=== PATIENT | female | born 1935 | race Caucasian/White ===

== ENCOUNTER 2018-08-24 20:42 | Inpatient (IN) | payer OTHER ==
--- NOTE | 2018-08-24 21:35 | RAD REPORT ---
EXAM DESCRIPTION: CT - Head C Spine Cap Wo Con - 08/24/2018 9:14 pm TECHNIQUE: Computed axial tomography of the head and cervical spine was obtained. Coronal and sagitt al reconstruction was performed Computed axial tomography of the chest, abdomen and pelvis was obtained. Contrast was not requested. All CT scans are performed using dose optimization technique as appropriate and may include automated exposure control or mA/KV adjustment according to patient size. CLINICAL HISTORY: Head and neck injury with chest and abdominal pain status post fall COMPARISON: Head and csp CT 2010 FINDINGS: An intracranial bleed is not seen. An extra-axial fluid collection is not noted The ventricles are normal in caliber. 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 Fluid within the sinuses/mastoids is not seen. A cervical fracture is not seen. No dislocation is noted. Mild anterior subluxation C3 on C4 is uncha nged. Spondylosis involves mid and distal cervical spine The evaluation of mediastinum, yazan, vessels, solid organs and bowel are limited secondary to the lac k of contrast administration. A mediastinal hematoma is not noted. A pleural effusion is not seen. A lung contusion is not present. The liver,spleen, pancreas, adrenals,kidneys and bladder do not demonstrate a traumatic injury Intertrochanteric fracture involves the right femur extending into the greater and lesser trochanters . Avulsion of the trochanters is seen. Marked varus angulation present at the fracture site. IMPRESSION: 1. No acute intracranial abnormality is seen. 2. A cervical fracture is not visualized. 3.Intertrochanteric fracture involves the right femur extending into the greater and lesser trochante rs. Avulsion of the trochanters is seen. Marked varus angulation present at the fracture site 4. No acute traumatic injury involving the chest/abdomen is seen .
--- NOTE | 2018-08-24 21:36 | RAD REPORT ---
EXAM DESCRIPTION: RAD - Pelvis - 08/24/2018 9:30 pm CLINICAL HISTORY: Right hip pain status post fall FINDINGS: Intertrochanteric fracture involves the right femur extending into the greater and lesser trochanters. Avulsion of the trochanters is seen. Marked varus angulation present at the fracture sit e No dislocation seen
--- NOTE | 2018-08-24 21:36 | RAD REPORT ---
EXAM DESCRIPTION: RAD - Hip Right 2 View - 08/24/2018 9:30 pm CLINICAL HISTORY: Right hip pain FINDINGS: Intertrochanteric fracture involves the right femur extending into the greater and lesser trochanters. Avulsion of the trochanters is seen. Marked varus angulation present at the fracture sit e No dislocation seen
--- NOTE | 2018-08-24 22:05 | RAD REPORT ---
EXAM DESCRIPTION: Lucas Single View08/24/2018 9:59 pm CLINICAL HISTORY: Chest pain COMPARISON: none FINDINGS: The lungs appear clear of acute infiltrate. The heart is normal size IMPRESSION: No acute abnormalities displayed
[2018-08-24] MEDS ORDERED: MORPHINE 4 MG/ML SYR ONE (22:16)
[2018-08-24] MEDS ORDERED: ONDANSETRON 4 MG/2 ML VIAL ONE (22:16)
[2018-08-24 22:21] LABS: Absolute Lymphocytes (CBC) 1.6 K/uL (0.7-4.9); Absolute Monocytes 0.9 K/uL (0.1-1.3); Absolute Neutrophil 12.8 K/uL (1.8-8.0); Basophils % 0.4 % (0-1.3); Eosinophils % 0.3 % (0-4.4); Hematocrit 36.3 % (36.0-45.0); Lymphocytes % 10.2 % (15.3-44.8); MCH 31.5 pg (27.0-35.0); MCV 94.8 fL (80-100); MPV 8.9 fL (7.6-11.3); Monocytes % 6.1 % (3.3-12.3); RBC Red Blood Cell Count 3.83 M/uL (3.86-4.86)
[2018-08-24 22:22] LABS: Protime INR 0.99
[2018-08-24 22:40] LABS: ALT/SGPT 13 U/L (12-78); AST/SGOT 17 U/L (15-37); Albumin 3.2 g/dL (3.4-5.0); Alkaline Phosphatase 65 U/L (45-117); BUN Blood Urea Nitrogen 19 mg/dL (7-18); Bicarbonate 29 mmol/L (21-32); Bilirubin Direct 0.1 mg/dL (0-0.2); Bilirubin Total 0.4 mg/dL (0.2-1.0); Glucose Level 138 mg/dL (74-106); NT PRO-BNP 348 pg/mL (<450); Potassium 4.7 mmol/L (3.5-5.1); Sodium Level 144 mmol/L (136-145); Troponin (Emerg Dept Use Only) < 0.02 ng/mL (0.0-0.045)
[2018-08-24] MEDS ORDERED: NA CHLORIDE 0.9% 1,000 ML ONE (22:44)
--- NOTE | 2018-08-24 23:10 | ER ---
Nurse's Notes [facility] Name: Albertina Damon Age: 83 yrs Sex: Female : 1935 Arrival Date: 08/24/2018 Time: 20:42 Bed 15 Private MD: Diagnosis: Displaced intertrochanteric fracture of right femur;Other slipping, tripping and stumbling and falls Presentation: 08/24 20:42 Presenting complaint: EMS states: Staff at [facility] stated that she was walking aj1 around when she suddenly lost her balance and fell, she was unable to stand up due to pain, and they noticed swelling to the right hip so they called EMS. Patient was given 50 mcg of Fentanyl en route. Deformity noted to right hip. Right leg is shortened and internally rotated. Right pedal pulse palpable. half-way staff states that patient did not hit head or lose consciousness during fall. Patient has redness to forehead, but small cut to forehead is scabbed and appears to be healing. Transition of care: patient was received from another setting of care (long-term care facility), [facility]. Onset of symptoms was August 24, 2018. Mechanism of Injury: Fall from standing position. Risk Assessment: Do you want to hurt yourself or someone else? Patient reports no desire to harm self or others. Initial Sepsis Screen: Does the patient meet any 2 criteria? No. Patient's initial sepsis screen is negative. Does the patient have a suspected source of infection? No. Patient's initial sepsis screen is negative. Care prior to arrival: None. 20:42 Acuity: VIVIANE 2 aj1 20:42 Method Of Arrival: EMS: [facility] aj1 20:42 Trauma event details: Injury occurred in the [facility]. aj1 21:50 Presenting complaint: [facility] hospice nurse television actor contacted ER and requested we contact ak1 her with dx and placement of pt as in admission or back to facility. Contact Tuyet Ribeiro at [phone]. Trauma Activation: Alert Physician: ED Physician; Name: Gerhard; Notified At: 20:42; Arrived At: 20:42 Physician: General Surgeon; Name: ; Notified At: 20:42; Arrived At: Physician: Radiology; Name: ; Notified At: 20:42; Arrived At: Physician: Respiratory; Name: ; Notified At: 20:42; Arrived At: Physician: Lab; Name: ; Notified At: 20:42; Arrived At: Historical: - Allergies: 21:23 No Known Allergies; aj1 - Home Meds: 21:23 diazepam 10 mg Oral tab 1 tab as needed for agitation and anxiety [Active]; lactulose aj1 10 gram/15 mL Oral soln 15 mL as needed for constipation [Active]; Morphine Oral as needed for pain [Active]; - PMHx: 21:23 CVA; out of hospital DNR, hospice patient; weight loss; aj1 - PSHx: 21:23 hip surgery; aj1 - Immunization history: Last tetanus immunization: unknown. - Social history:: Smoking status: unknown. - Ebola Screening: : Patient denies travel to an Ebola-affected area in the 21 days before illness onset. Screenin:42 Abuse screen: Patient does not answer verbal questions, unable to obtain. Tuberculosis aj1 screening: No symptoms or risk factors identified. 20:50 Fall Risk Fall in past 12 months (25 points). Secondary diagnosis (15 points) dementia, jb4 IV access (20 points). Primary Survey: 20:42 A: Airway: patent. Breathing/Chest: Respiratory pattern: regular, Respiratory effort: aj1 spontaneous, shallow, Breath sounds: clear, bilaterally. Chest inspection: symmetrical rise and fall of the chest. Circulation: Heart tones present. Pulses: palpable right dorsalis pedis artery and left dorsalis pedis artery. Skin color: pink. Disability Verbal Stimuli. 23:50 Reassessment Breathing/Chest Respiratory pattern Regular Respiratory effort Spontaneous jb4 Unlabored Breath sounds Clear Chest inspection Symmetrical. Secondary Survey: 20:42 HEENT: Head Other Redness noted to forehead Eyes: No injury or deformity noted. Ears: aj1 clear Nose: clear Throat: No injury or deformity noted. Gastrointestinal: No deficits noted. : No signs and/or symptoms were reported regarding the genitourinary system. Musculoskeletal: Capillary refill < 3 seconds, in right toes. Bony deformity noted of right hip Swelling present in right hip. Assessment: 20:42 General: Appears in no apparent distress. uncomfortable, Behavior is drowsy. Neuro: aj1 Level of Consciousness is lethargic, Patient responds repeated verbal and tactile stimulation, will open eyes and look at staff but does not answer questions verbally. Patient's son is at bedside, states that sometimes she will answer questions normally, sometimes she will not and typically she does not if she has received pain medication. . EENT: No signs and/or symptoms were reported regarding the EENT system. Cardiovascular: Heart tones S1 S2 present Patient's skin is warm and dry. Pulses are palpable in left dorsalis pedis artery and right dorsalis pedis artery Rhythm is regular. Respiratory: Airway is patent Respiratory effort is even, unlabored, Respiratory pattern is regular, symmetrical, Breath sounds are clear bilaterally. GI: Abdomen is flat, non-distended. : No signs and/or symptoms were reported regarding the genitourinary system. Derm: Skin is pink, warm \T\ dry. Redness noted to forehead. Musculoskeletal: Capillary refill < 3 seconds, in right toes. Bony deformity noted of right hip Swelling present in right hip Right leg is shortened and internally rotated. Injury Description: skin tear noted to right elbow. 21:03 General: Appears in no apparent distress. uncomfortable, Behavior is calm, cooperative. jb4 Pain: Complains of pain in Right hip. Neuro: Level of Consciousness is lethargic, Pt received fentanyl during transport. Current level of consciousness while on pain medication is at reported norm.. Cardiovascular: Heart tones S1 S2 present Patient's skin is warm and dry. Pulses are 2+ in right dorsalis pedis artery and left dorsalis pedis artery Rhythm is sinus rhythm. Respiratory: Airway is patent Respiratory effort is even, unlabored, Respiratory pattern is regular, symmetrical, Breath sounds are clear bilaterally. GI: No signs and/or symptoms were reported involving the gastrointestinal system. : No signs and/or symptoms were reported regarding the genitourinary system. EENT: No signs and/or symptoms were reported regarding the EENT system. Derm: Skin is pink, warm \T\ dry. Skin tear noted to right elbow. Musculoskeletal: Capillary refill < 3 seconds, in right toes. right leg is approximately 2 inches shorter that the left leg. Hip deformity noted. 21:24 Reassessment: Morphine held due to excessive sedation of patient, respirations are aj1 shallow, patient is unable to follow commands, does not respond verbally, was ambulatory with walker at halfway. Notified PETER Mock. 22:13 Reassessment: Patient appears in no apparent distress at this time. Patient and/or jb4 family updated on plan of care and expected duration. Pain level reassessed. Pt is confused and Lethargic due to pain medication given during transit. respirations even and unlabored with no S/S of distress noted. Pain medication held due to current sedation level and as requested by pt's son. 22:46 Reassessment: Patient appears in no apparent distress at this time. No changes from jb4 previously documented assessment. Patient and/or family updated on plan of care and expected duration. Pain level reassessed. family at the bedside. 23:06 Reassessment: [facility] hospice nurse contacted and informed of pt admission. ak1 23:50 Reassessment: Patient appears in no apparent distress at this time. No changes from jb4 previously documented assessment. Patient and/or family updated on plan of care and expected duration. Pain level reassessed. 08/25 00:40 Reassessment: Patient appears in no apparent distress at this time. No changes from jb4 previously documented assessment. Patient and/or family updated on plan of care and expected duration. Pain level reassessed. Son called and updated on admission and transition of care. Notified of room number. Vital Signs: 08/24 20:42 BP 144 / 64; Pulse 70; Resp 12; Temp 97.5; Pulse Ox 96% on R/A; aj1 21:30 BP 140 / 80; Pulse 67; Resp 14; Pulse Ox 97% on R/A; jb4 22:30 BP 126 / 49; Pulse 67; Resp 15; Pulse Ox 98% on R/A; jb4 23:30 BP 126 / 53; Pulse 64; Resp 19; Pulse Ox 96% on R/A; jb4 08/25 00:30 BP 101 / 71; Pulse 54; Resp 18; Pulse Ox 96% on R/A; jb4 Richard Coma Score: 08/24 20:42 Eye Response: to voice(3). Verbal Response: confused(4). Motor Response: localizes aj1 pain(5). Total: 12. 21:30 Eye Response: to voice(3). Verbal Response: confused(4). Motor Response: localizes jb4 pain(5). Total: 12. 22:30 Eye Response: to voice(3). Verbal Response: confused(4). Motor Response: localizes jb4 pain(5). Total: 12. 23:30 Eye Response: to voice(3). Verbal Response: confused(4). Motor Response: localizes jb4 pain(5). Total: 12. 08/25 00:30 Eye Response: to voice(3). Verbal Response: confused(4). Motor Response: localizes jb4 pain(5). Total: 12. Trauma Score (Adult): 08/24 20:42 Eye Response: to voice(0); Verbal Response: confused(1); Motor Response: localizes aj1 pain(1); Systolic BP: > 89 mm Hg(4); Respiratory Rate: 10 to 29 per min(4); Wall Score: 12; Trauma Score: 10 21:30 Eye Response: to voice(0); Verbal Response: confused(1); Motor Response: localizes jb4 pain(1); Systolic BP: > 89 mm Hg(4); Respiratory Rate: 10 to 29 per min(4); Wall Score: 12; Trauma Score: 10 22:30 Eye Response: to voice(0); Verbal Response: confused(1); Motor Response: localizes jb4 pain(1); Systolic BP: > 89 mm Hg(4); Respiratory Rate: 10 to 29 per min(4); Wall Score: 12; Trauma Score: 10 23:30 Eye Response: to voice(0); Verbal Response: confused(1); Motor Response: localizes jb4 pain(1); Systolic BP: > 89 mm Hg(4); Respiratory Rate: 10 to 29 per min(4); Wall Score: 12; Trauma Score: 10 08/25 00:30 Eye Response: to voice(0); Verbal Response: confused(1); Motor Response: localizes jb4 pain(1); Systolic BP: > 89 mm Hg(4); Respiratory Rate: 10 to 29 per min(4); Wall Score: 12; Trauma Score: 10 ED Course: 08/24 20:42 Patient arrived in ED. al2 20:42 Arm band placed on Patient placed in an exam room. aj1 20:42 Patient maintains SpO2 saturation greater than 95% on room air. aj1 20:53 Jose Valentino PA is PHCP. cp 20:53 Jose Hennessy MD is Attending Physician. cp 21:03 Alfredo Berg, MELISSA is Primary Nurse. jb4 21:08 Triage completed. aj1 21:08 Patient has correct armband on for positive identification. Placed in gown. Bed in low jb4 position. Call light in reach. Side rails up X2. recruiting coordinator on. Pulse ox on. NIBP on. 21:08 Maintain EMS IV. Dressing intact. Site clean \T\ dry. Gauge \T\ site: 20g RAC. sanford 4 21:14 CT Traumagram (Head C Spine CAP wo con) In Process Unspecified. EDMS 21:25 Thermoregulation: warm blanket given to patient. aj1 21:31 XRAY Pelvis In Process Unspecified. EDMS 21:31 XRAY Hip RIGHT 2 view In Process Unspecified. EDMS 22:00 XRAY Chest (1 view) In Process Unspecified. EDMS 23:08 Dannie Correa MD is Hospitalizing Provider. cp 08/25 01:00 No provider procedures requiring assistance completed. jb4 01:00 Patient admitted, IV remains in place. [facility] Administered Medications: 08/24 21:04 CANCELLED (Physician Discretion): morphine 2 mg IVP once cp 22:43 Drug: NS 0.9% 1000 ml Route: IV; Rate: 75 ml/hr; Site: right antecubital; [facility] 08/25 01:02 Follow up: Response: No adverse reaction; IV Status: Infusion continued upon admission [facility] 08/24 23:26 Drug: Zofran 4 mg Route: IVP; Site: right antecubital; [facility] 08/25 01:02 Follow up: Response: No adverse reaction [facility] 08/24 23:26 Drug: morphine 1 mg Route: IVP; Site: right antecubital; [facility] 08/25 01:02 Follow up: Response: No adverse reaction; Pain is decreased jb Intake: 01:01 IV: 130ml; Total: 130ml. 4 Output: 01:01 Urine: 200ml ([place]); Total: 200ml. [facility] Outcome: 08/24 23:10 Decision to Hospitalize by Provider. cp 08/25 01:00 Admitted to [facility] accompanied by nurse, via stretcher, with chart, Report called to susy Cooper RN Condition: stable Discharge instructions given to television newscast director, Instructed on the need for admit, Demonstrated understanding of instructions. 01:03 Patient left the ED. jb4 Signatures: Dispatcher [employer] EDMS Hui Anderson RN RN aj1 Giovanna Hinojosa RN RN mary1 Jose Valentino PA PA cp Bryson, James RN RN Mecca Aparicio2 Corrections: (The following items were deleted from the chart) 08/24 21:12 21:03 General: Appears in no apparent distress. uncomfortable, Behavior is calm, aj1 cooperative, susy 21:12 21:04 Presenting complaint: EMS states: Staff at [facility] stated that she was [facility] walking around when she suddenly lost her balance and fell, she was unable to stand up due to pain, and they noticed swelling to the right hip so they called EMS. Patient was given 50 mcg of Fentanyl en route. Deformity noted to right hip. Right leg is shortened and internally rotated. Right pedal pulse palpable. half-way staff states that patient did not hit head or lose consciousness during fall. Patient has redness to forehead, but small cut to forehead is scabbed and appears to be healing. aj1 21:12 21:04 Transition of care: patient was received from another setting of care (long-term [facility] care facility), [facility] aj 21:12 21:04 Onset of symptoms was August 24, 2018 [place] [id number] 21:12 21:04 Risk Assessment: Do you want to hurt yourself or someone else? Patient reports no [facility] desire to harm self or others. aj1 21:12 21:04 Initial Sepsis Screen: Does the patient meet any 2 criteria? No. Patient's [facility] initial sepsis screen is negative. Does the patient have a suspected source of infection? No. Patient's initial sepsis screen is negative. aj1 21:12 21:04 Care prior to arrival: None. aj1 aj1 21:12 21:04 Method Of Arrival: EMS: [facility] aj 21:12 21:04 Acuity: VIVIANE 2 [facility] aj 21:12 21:09 Mechanism of Injury: Fall from standing position. aj1 aj1 22:18 21:30 BP 113 / 52; Pulse 67bpm; Resp 14bpm; Pulse Ox 97% RA; jb4 jb4 22:48 21:30 GCS: 12, jb4 jb4 23:53 21:30 GCS: 13, jb4 jb4 23:53 22:30 GCS: 13, jb4 jb4
--- NOTE | 2018-08-24 23:10 | EDPHYS ---
Physician Documentation [facility] Name: Albertina Damon Age: 83 yrs Sex: Female : 1935 Arrival Date: 08/24/2018 Time: 20:42 Bed 15 Private MD: ED Physician Jose Hennessy HPI: 08/24 21:15 This 83 yrs old Female presents to ER via EMS with complaints of Hip Injury. cp 21:15 Details of fall: The patient fell from an upright position, while standing, and struck cp a tile surface. 21:15 Onset: The symptoms/episode began/occurred just prior to arrival. Associated injuries: cp The patient sustained right hip. 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 Historical: - Allergies: 21:23 No Known Allergies; aj1 - Home Meds: 21:23 diazepam 10 mg Oral tab 1 tab as needed for agitation and anxiety [Active]; lactulose aj1 10 gram/15 mL Oral soln 15 mL as needed for constipation [Active]; Morphine Oral as needed for pain [Active]; - PMHx: 21:23 CVA; out of hospital DNR, hospice patient; weight loss; aj1 - PSHx: 21:23 hip surgery; aj1 - Immunization history: Last tetanus immunization: unknown. - Social history:: Smoking status: unknown. - Ebola Screening: : Patient denies travel to an Ebola-affected area in the 21 days before illness onset. ROS: 21:20 Constitutional: Negative for fever. cp 21:20 Unable to obtain ROS due to baseline dementia, patient given IV pain meds en route by EMS and now drowsy. Exam: 21:25 Constitutional: The patient appears in no acute distress, non-diaphoretic, non-toxic, cp well developed, frail, drowsy 21:25 Head/Face: Normocephalic, atraumatic. cp 21:25 Eyes: Periorbital structures: appear normal, Pupils: pinpoint, bilaterally, Conjunctiva: normal, no exudate, no injection, Sclera: no appreciated abnormality, Lids and lashes: appear normal, bilaterally. 21:25 ENT: External ear(s): are unremarkable, Ear canal(s): are normal, clear, TM's: bulging, is not appreciated, dullness, bilaterally, erythema, is not appreciated, bilaterally, Nose: is normal, Mouth: Lips: moist, Oral mucosa: moist, Posterior pharynx: is normal, airway is patent, no erythema, no exudate. 21:25 Neck: C-spine: vertebral tenderness, is not appreciated, crepitus, is not appreciated, ROM/movement: is normal, is supple, without pain, no range of motions limitations, no nuchal rigidity. 21:25 Chest/axilla: Inspection: normal, Palpation: is normal, no crepitus, no tenderness. 21:25 Cardiovascular: Rate: normal, Rhythm: regular, Edema: is not appreciated, JVD: is not appreciated. 21:25 Respiratory: the patient does not display signs of respiratory distress, Respirations: normal, no use of accessory muscles, no retractions, no splinting, no tachypnea, labored breathing, is not present, Breath sounds: are clear throughout, no decreased breath sounds, no stridor, no wheezing. 21:25 Abdomen/GI: Inspection: abdomen appears normal, Bowel sounds: active, all quadrants, Palpation: abdomen is soft and non-tender, in all quadrants. 21:25 Musculoskeletal/extremity: Extremities: grossly normal except: noted in the right hip: decreased ROM, deformity, pain, tenderness, Perfusion: the extremity is normally perfused throughout, Sensation intact. 21:25 Skin: cellulitis, is not appreciated, no rash present. 21:25 Neuro: Orientation: unable to test, Mentation: sleepy, responsive to pain, Motor: moves all fours. 22:05 ECG was reviewed by the Attending Physician. cp Vital Signs: 20:42 BP 144 / 64; Pulse 70; Resp 12; Temp 97.5; Pulse Ox 96% on R/A; aj1 21:30 BP 140 / 80; Pulse 67; Resp 14; Pulse Ox 97% on R/A; jb4 22:30 BP 126 / 49; Pulse 67; Resp 15; Pulse Ox 98% on R/A; jb4 23:30 BP 126 / 53; Pulse 64; Resp 19; Pulse Ox 96% on R/A; jb4 08/25 00:30 BP 101 / 71; Pulse 54; Resp 18; Pulse Ox 96% on R/A; jb4 Richard Coma Score: 08/24 20:42 Eye Response: to voice(3). Verbal Response: confused(4). Motor Response: localizes aj1 pain(5). Total: 12. 21:30 Eye Response: to voice(3). Verbal Response: confused(4). Motor Response: localizes jb4 pain(5). Total: 12. 22:30 Eye Response: to voice(3). Verbal Response: confused(4). Motor Response: localizes jb4 pain(5). Total: 12. 23:30 Eye Response: to voice(3). Verbal Response: confused(4). Motor Response: localizes jb4 pain(5). Total: 12. 08/25 00:30 Eye Response: to voice(3). Verbal Response: confused(4). Motor Response: localizes jb4 pain(5). Total: 12. Trauma Score (Adult): 08/24 20:42 Eye Response: to voice(0); Verbal Response: confused(1); Motor Response: localizes aj1 pain(1); Systolic BP: > 89 mm Hg(4); Respiratory Rate: 10 to 29 per min(4); Richard Score: 12; Trauma Score: 10 21:30 Eye Response: to voice(0); Verbal Response: confused(1); Motor Response: localizes jb4 pain(1); Systolic BP: > 89 mm Hg(4); Respiratory Rate: 10 to 29 per min(4); Richard Score: 12; Trauma Score: 10 22:30 Eye Response: to voice(0); Verbal Response: confused(1); Motor Response: localizes jb4 pain(1); Systolic BP: > 89 mm Hg(4); Respiratory Rate: 10 to 29 per min(4); Canyon Score: 12; Trauma Score: 10 23:30 Eye Response: to voice(0); Verbal Response: confused(1); Motor Response: localizes jb4 pain(1); Systolic BP: > 89 mm Hg(4); Respiratory Rate: 10 to 29 per min(4); Richard Score: 12; Trauma Score: 10 08/25 00:30 Eye Response: to voice(0); Verbal Response: confused(1); Motor Response: localizes jb4 pain(1); Systolic BP: > 89 mm Hg(4); Respiratory Rate: 10 to 29 per min(4); Richard Score: 12; Trauma Score: 10 MDM: 08/24 20:53 Patient medically screened. 23:00 Data reviewed: vital signs, nurses notes, lab test result(s), EKG, radiologic studies, cp CT scan, plain films. 23:05 Physician consultation: Fransisco Martinez MD was called at 22:53, was contacted at 22:53, cp regarding consult, patient's condition, would like admission per Dr. Dannie Correa MD. 23:06 Physician consultation: Dannie Correa MD was called at 23:05, was contacted at 23:05, cp regarding admission, to the telemetry unit. patient's condition. 08/24 21:03 Order name: Basic Metabolic Panel; Complete Time: 22:40 08/24 22:41 Interpretation: Normal except: CL 109; GLUC 138; BUN 19; GFR 69. 08/24 21:03 Order name: CBC with Diff; Complete Time: 22:37 08/24 22:37 Interpretation: Normal except: WBC 15.4; RBC 3.83; MCV 94.8; KIEL% 83.0; LYM% 10.2; NEUT cp A 12.8. 08/24 21:03 Order name: LFT's; Complete Time: 22:40 08/24 21:03 Order name: Magnesium; Complete Time: 22:40 08/24 21:03 Order name: NT PRO-BNP; Complete Time: 22:40 08/24 21:03 Order name: PT-INR; Complete Time: 22:37 08/24 21:03 Order name: CT Traumagram (Head C Spine CAP wo con); Complete Time: 22:23 08/24 22:39 Interpretation: Report reviewed. 08/24 21:03 Order name: Troponin (emerg Dept Use Only); Complete Time: 22:40 08/24 21:03 Order name: XRAY Chest (1 view); Complete Time: 22:23 08/24 21:03 Order name: XRAY Pelvis; Complete Time: 22:23 08/25 00:10 Order name: Basic Metabolic Panel EDMS 08/25 00:10 Order name: Basic Metabolic Panel EDMS 08/25 00:10 Order name: CBC with Automated Diff EDMS 08/25 00:10 Order name: CBC with Automated Diff EDMS 08/24 21:03 Order name: EKG; Complete Time: 21:04 cp 08/24 21:03 Order name: Cardiac monitoring; Complete Time: 21:09 cp 08/24 21:03 Order name: EKG - Nurse/Tech; Complete Time: 22:06 cp 08/24 21:03 Order name: IV Saline Lock; Complete Time: 21:09 cp 08/24 21:03 Order name: Labs collected and sent; Complete Time: 22:06 08/24 21:03 Order name: O2 Per Protocol; Complete Time: 21: cp 08/24 21:03 Order name: O2 Sat Monitoring; Complete Time: 21:09 cp 08/24 21:03 Order name: XRAY Hip RIGHT 2 view; Complete Time: 22:23 cp 08/24 22:51 Order name: [place]; Complete Time: 23:26 cp 08/24 22:54 Order name: NPO; Complete Time: :56 cp 08/25 00:10 Order name: CONS Physician Consult EDKY 08/25 00:10 Order name: NPO EDKY 08/24 22:54 Order name: Misc. Order: hold blood thinners if necessary; Complete Time: 22:56 cp EC:05 Rate is 68 beats/min. Rhythm is regular. CT interval is prolonged at 232 msec. QRS cp interval is normal. QT interval is normal. Interpreted by me. Reviewed by me. Administered Medications: 21:04 CANCELLED (Physician Discretion): morphine 2 mg IVP once cp 22:43 Drug: NS 0.9% 1000 ml Route: IV; Rate: 75 ml/hr; Site: right antecubital; [facility] 08/25 01:02 Follow up: Response: No adverse reaction; IV Status: Infusion continued upon admission [facility] 08/24 23:26 Drug: Zofran 4 mg Route: IVP; Site: right antecubital; 4 08/25 01:02 Follow up: Response: No adverse reaction [facility] 08/24 23:26 Drug: morphine 1 mg Route: IVP; Site: right antecubital; [facility] 08/25 01:02 Follow up: Response: No adverse reaction; Pain is decreased [facility] Disposition: 01:30 Chart complete. cp Disposition: 08/24/18 23:10 Hospitalization ordered by Dannie Correa for Inpatient Admission. Preliminary diagnosis are Displaced intertrochanteric fracture of right femur, Other slipping, tripping and stumbling and falls. - Bed requested for Telemetry/MedSurg (Inpatient). - Status is Inpatient Admission. jb4 - Condition is Fair. - Problem is new. - Symptoms have improved. UTI on Admission? No Addendum: 08/27/2018 06:58 Co-signature as Attending Physician, Jose Hennessy MD I agree with the assessment and c kruse plan of care. Signatures: Dispatcher [employer] EDHui Sosa RN RN aj1 Amalia Gallagher RN RN kl Anderson, Corey, MD MD cha Page, Corey, PA PA Alfredo Humphries RN RN jb4 Corrections: (The following items were deleted from the chart) 08/24 21:04 21:04 morphine 2 mg IVP once ordered. [facility] 23:06 22:53 Physician consultation: Fransisco Martinez MD was called at 22:53, was contacted at 22:53, regarding consult, patient's condition, would like admission per Dr. Rito Cade MD 23:59 23:10 Hospitalization Ordered by Dannie Correa MD for Inpatient Admission. Preliminary kl diagnosis is Displaced intertrochanteric fracture of right femur; Other slipping, tripping and stumbling and falls. Bed requested for Telemetry/MedSurg (Inpatient). Status is Inpatient Admission. Condition is Fair. Problem is new. Symptoms have improved. UTI on Admission? No. cp 08/25 00:02 08/24 23:59 08/24/2018 23:10 Hospitalization Ordered by Dannie Correa MD for Inpatient kl Admission. Preliminary diagnosis is Displaced intertrochanteric fracture of right femur; Other slipping, tripping and stumbling and falls. Bed requested for Telemetry/MedSurg (Inpatient). Status is Inpatient Admission. Condition is Fair. Problem is new. Symptoms have improved. UTI on Admission? No. kl 08/25 01:03 00:02 08/24/2018 23:10 Hospitalization Ordered by Dannie Correa MD for Inpatient jb4 Admission. Preliminary diagnosis is Displaced intertrochanteric fracture of right femur; Other slipping, tripping and stumbling and falls. Bed requested for Telemetry/MedSurg (Inpatient). Status is Inpatient Admission. Condition is Fair. Problem is new. Symptoms have improved. UTI on Admission? No. kl
[2018-08-24] MEDS ORDERED: ONDANSETRON 4 MG/2 ML VIAL IV PRN (23:49)
[2018-08-24] MEDS ORDERED: ACETAMINOPHEN 500 MG TAB PO PRN (23:49)
[2018-08-25] MEDS ORDERED: TETANUS & DIPHTHERIA TOX,ADULT 0.5 ML VIAL ONE (01:59)
[2018-08-25] MEDS: D5 0.45 NS 1,000 ML IV SCH ×3 (02:32→18:56)
[2018-08-25 06:58] LABS: Absolute Monocytes 1.3 K/uL (0.1-1.3); Absolute Neutrophil 6.5 K/uL (1.8-8.0); Basophils % 0.8 % (0-1.3); Eosinophils % 0.2 % (0-4.4); Hematocrit 32.5 % (36.0-45.0); Lymphocytes % 19.8 % (15.3-44.8); MCV 94.9 fL (80-100); MPV 8.7 fL (7.6-11.3); Monocytes % 13.2 % (3.3-12.3); RBC Red Blood Cell Count 3.43 M/uL (3.86-4.86)
[2018-08-25 07:00] LABS: Potassium 4.4 mmol/L (3.5-5.1)
--- NOTE | 2018-08-25 08:03 | EKG ---
Test Date: 2018-08-24 Test Time: 22:00:35 Senior Svp: SARAI MEASUREMENT RESULTS: Intervals: Rate: 68 NV: 232 QRSD: 74 QT: 396 QTc: 421 [place]: P: 88 NV: 232 QRS: 11 T: 66 INTERPRETIVE STATEMENTS: Sinus rhythm with 1st degree AV block Otherwise normal ECG Compared to ECG 06/23/2011 18:26:11 First degree AV block now present Electronically Signed On 08-25-18 08:02:57 LICENSED MENTAL HEALTH COUNSELOR by Riley Velasco
--- NOTE | 2018-08-25 10:12 | P.HP ---
Certification for Inpatient Patient admitted to: Inpatient With expected LOS: >2 Midnights Practitioner: I am a practitioner with admitting privileges, knowledge of patient current condition, hospital course, and medical plan of care. Services: Services provided to patient in accordance with Admission requirements found in Title 42 Section 412.3 of the Code of Federal Regulations Patient History Date of Service: 08/25/18 Reason for admission: FELL AND BROKE R HIP History of Present Illness: MS. SPENCE IS 83 YEARS OLD HEALTHY LADY WITH SIGNIFICANT ALZ. DISEASE FELL AT [facility] [place] AND BROKE R HIP. DAUGHTER IS AT BEDSIDE. Allergies No Known Allergies Allergy (Unverified 08/25/18 00:53) - Past Medical/Surgical History Diabetic: No -: CVA -: dementia -: hip sx - Social History Smoking Status: Unknown if ever smoked [facility] Review of Systems 10-point ROS is otherwise unremarkable Musculoskeletal: Leg Pain, As per HPI Physical Examination - Vital Signs Temperature: 98.1 F Blood Pressure: 126/58 Pulse: 65 Respirations: 16 Pulse Ox (%): 97 - Physical Exam General: Mild distress, Other (SOMNOLENT WITH PAIN MEDS. ) HEENT: Atraumatic, PERRLA, Mucous membr. moist/pink, EOMI, Sclerae nonicteric Neck: Supple, 2+ carotid pulse no bruit, No LAD, Without JVD or thyroid abnormality Respiratory: Clear to auscultation bilaterally, Normal air movement Cardiovascular: Regular rate/rhythm, Normal S1 S2 Gastrointestinal: Normal bowel sounds, No tenderness Musculoskeletal: No tenderness Integumentary: No rashes Neurological: Other (UNABLE TO EXAMINE. SEDATED AT PRESENT. ) Lymphatics: No axilla or inguinal lymphadenopathy - Studies Laboratory Data (last 24 hrs) 08/24/18 22:00: PT 11.7, INR 0.99 08/24/18 22:00: WBC 15.4 H, Hgb 12.1, Hct 36.3, Plt Count 259 08/24/18 22:00: Sodium 144, Potassium 4.7, BUN 19 H, Creatinine 0.80, Glucose 138 H, Magnesium 2.0, Total Bilirubin 0.4, AST 17, ALT 13, Alkaline Phosphatase 65 Assessment and Plan - Problems (Diagnosis) (1) Recent fracture of hip Current Visit: Yes Status: Acute Plan: MEDICALLY CLEARED WITH MILD RISK FOR ANESTHESIA AND SURGERY BUT MODERATE RISK OF NON RECOVERY POST OP FOR BEING ABLE TO WALK AGAIN. SHE HAS MODERATE DEMENTIA AND MAY NOT BE ABLE TO DO PT. SHE WILL GO BACK TO [facility]. LIVING FACILITY. STABLE FOR NOW. NO ACUTE CORONARY SYMPTOMS. - Advance Directives Does patient have a Living Will: Yes Does patient have a Durable POA for Healthcare: Yes
[2018-08-25] MEDS: MORPHINE 2 MG/ML SYR IV PRN ×3 (11:37→20:43)
[2018-08-26] MEDS: D5 0.45 NS 1,000 ML IV SCH ×2 (01:16→15:00)
[2018-08-26] MEDS: MORPHINE 2 MG/ML SYR IV PRN ×5 (01:26→21:37)
[2018-08-26] MEDS ORDERED: Ringers Lactate 1,000 ML IV ONE ×2 (07:25→10:10)
[2018-08-26] MEDS ORDERED: CEFAZOLIN/SWI 1gm 1 GM/10 ML SYR ONE (08:24)
[2018-08-26] MEDS ORDERED: SUCCINYLCHOLINE 20 MG/ML (10 ML) IV ONE (08:26)
[2018-08-26] MEDS ORDERED: FENTANYL CITR 100 MCG/2 ML ONE (08:30)
[2018-08-26] MEDS ORDERED: PROPOFOL 200 MG/20 ML VIAL IV ONE (08:31)
[2018-08-26] MEDS ORDERED: ROCURONIUM 50 MG/5 ML VIAL IV ONE (08:31)
[2018-08-26] MEDS ORDERED: Phenylephrine HCl 10 MG/ML 1 ML VIAL ONE (08:45)
[2018-08-26] MEDS ORDERED: NEOSTIGMINE 1 MG/ML -5 ML SYRINGE ONE (09:47)
[2018-08-26] MEDS ORDERED: GLYCOPYRROLATE 0.2 MG/ML SYR ONE (09:47)
[2018-08-26] MEDS ORDERED: MORPHINE SULFATE 100 MG PO PRN (09:53)
[2018-08-26] MEDS ORDERED: HOME MED 1 EA UNK (Ondansetron Hcl [Zofran] 4 MG) PO PRN (09:53)
[2018-08-26] MEDS ORDERED: DIAZEPAM 10 MG SL PRN (09:53)
[2018-08-26] MEDS ORDERED: HOME MED 1 EA UNK (Lactulose [Lactulose] 10 GM) PO PRN (09:53)
[2018-08-26] MEDS ORDERED: ACETAMINOPHEN 650MG/RECT SUPP PR PRN (09:53)
[2018-08-26] MEDS ORDERED: SCOPOLAMINE HYDROBROMIDE PATCH TD PRN (10:05)
[2018-08-26] MEDS ORDERED: ONDANSETRON 4 MG (ODT) TAB PO PRN (10:07)
[2018-08-26] MEDS ORDERED: LACTULOSE 20 GM/30 ML UCUP PO PRN (10:08)
--- NOTE | 2018-08-26 10:20 | RAD REPORT ---
EXAM DESCRIPTION: RAD - Hip In Or - 08/26/2018 10:06 am CLINICAL HISTORY: RIGHT HIP OR COMPARISON: Pelvis dated 08/24/2018 FINDINGS: Fluoroscopic imaging from ORIF of a proximal right femur fracture is submitted. Details of the procedure not available. Six static images were obtained and total fluoro time is 2.1 minutes.
--- NOTE | 2018-08-26 10:24 | P.PN ---
Subjective Date of Service: 08/26/18 Chief Complaint: FELL AND BROKE R HIP Subjective: Improving SP SURGERY, SHE WILL GO TO ICU FOR A DAY DR. HOOPER DOES ROUTINELY. SHE DID WELL WITH SURGERY. Review of Systems 10-point ROS is otherwise unremarkable General: Weakness, Other (POST OP, SEDATED.) Physical Examination - Vital Signs Temperature: 97.9 F Blood Pressure: 124/54 Pulse: 83 Respirations: 18 Pulse Ox (%): 96 - Physical Exam General: Unresponsive HEENT: Atraumatic, PERRLA, EOMI Neck: Supple, JVD not distended Respiratory: Clear to auscultation bilaterally, Normal air movement Cardiovascular: Regular rate/rhythm, Normal S1 S2 Gastrointestinal: Normal bowel sounds, No tenderness Musculoskeletal: No tenderness Integumentary: No rashes Neurological: Normal speech, Normal tone, Normal affect Lymphatics: No axilla or inguinal lymphadenopathy - Studies Medications List Reviewed: Yes Assessment And Plan - Current Problems (Diagnosis) (1) Recent fracture of hip Current Visit: Yes Status: Acute Plan: MEDICALLY CLEARED WITH MILD RISK FOR ANESTHESIA AND SURGERY BUT MODERATE RISK OF NON RECOVERY POST OP FOR BEING ABLE TO WALK AGAIN. SHE HAS MODERATE DEMENTIA AND MAY NOT BE ABLE TO DO PT. SHE WILL GO BACK TO [facility]. LIVING FACILITY. STABLE FOR NOW. NO ACUTE CORONARY SYMPTOMS. DID WELL WITH SURGERY. RECOVERY WILL BE IN QUESTION. MAY NOT WALK AGAIN. FAMILY IS AWARE. DW THEM TODAY ABOUT GOING BACK TO [facility].
--- NOTE | 2018-08-26 13:31 | CON ---
Date of Consult: 08/25/2018 Reason For Consultation: Right intertrochanteric hip fracture. History Of Present Illness: Ms. Damon is an 83-year-old woman, sedated at the time of my visit with her. She cannot answer questions clearly, sustained a right intertrochanteric hip fracture. She will need intramedullary rodding of the right intertrochanteric hip fracture. Past Medical History: Significant for left hip fracture that unfortunately failed and was converted to a total hip arthroplasty and has been doing well without operative intervention for a number of years. She has some baseline dementia. She is independent and in assisted living. Plan: Fix her hip after medical clearance with an intramedullary gregoria construct. FLY/BURT Voice ID: [id number] Report ID: [id number] MTDD
[2018-08-26] MEDS: CEFAZOLIN/SWI 1gm 1 GM/10 ML SYR IVP SCH (17:20)
[2018-08-26] MEDS: ZIPRASIDONE MESYLA 20 MG/VIAL IM PRN (19:36)
[2018-08-26] MEDS: WATER FOR INJ,STERILE 10 ML IM PRN (19:37)
--- NOTE | 2018-08-26 20:37 | OP ---
Surgeon: Fransisco Coppola MD Date of service: 08/26/2018 Preoperative Diagnosis: Right 4-part plus and had intertrochanteric hip fracture. Postoperative Diagnosis: Right 4-part plus and had intertrochanteric hip fracture. Procedure Performed: IM rodding right intertrochanteric hip fracture. Simplex Operator: None. Anesthesia: General. Disposition: Recovery in stable. Procedure In Detail: The patient was taken to the operative suite, placed in supine position, induced anesthesia. The right hip was prepped and draped in usual sterile fashion. Reduction maneuvers were performed utilizing the nail, was created over the entry portal and the tip of the greater trochanter. A 9 x 130 nail was selected. Biplane radiography dual-screw construct to the femoral head was placed verifying placement of the screws in biplane radiography. A 90 mm lag screw with a 70 mm anterior rotation screw was placed followed by interlocking with 34 mm distal screw. The patient tolerated the procedure well. Layered closure of all wounds was performed. The patient is being reversed anesthesia at the conclusion of the procedure. The left hip was examined under image intensification, verifying that it was concentrically located. This patient previous had a total hip performed some years ago. FLY/BURT Voice ID: [id number] Report ID: [id number] ANNA
[2018-08-27] MEDS: D5 0.45 NS 1,000 ML IV SCH ×3 (01:58→21:00)
[2018-08-27] MEDS: CEFAZOLIN/SWI 1gm 1 GM/10 ML SYR IVP SCH ×2 (01:58→09:50)
[2018-08-27] MEDS ORDERED: ENOXAPARIN 40 MG/0.4 ML SQ ONE (05:00)
[2018-08-27 07:54] LABS: Absolute Lymphocytes (CBC) 1.8 K/uL (0.7-4.9); Absolute Monocytes 1.3 K/uL (0.1-1.3); Absolute Neutrophil 8.3 K/uL (1.8-8.0); Basophils % 0.3 % (0-1.3); Eosinophils % 0.6 % (0-4.4); Lymphocytes % 15.5 % (15.3-44.8); MCH 31.9 pg (27.0-35.0); MCV 95.5 fL (80-100); Monocytes % 11.7 % (3.3-12.3); RBC Red Blood Cell Count 2.51 M/uL (3.86-4.86)
[2018-08-27 07:59] LABS: BUN Blood Urea Nitrogen 10 mg/dL (7-18); Bicarbonate 28 mmol/L (21-32); Glucose Level 113 mg/dL (74-106); Potassium 3.8 mmol/L (3.5-5.1); Sodium Level 139 mmol/L (136-145)
[2018-08-27] MEDS: MORPHINE 2 MG/ML SYR IV PRN ×3 (09:50→20:02)
[2018-08-27] MEDS ORDERED: ENOXAPARIN 40 MG/0.4 ML SQ SCH (09:51)
[2018-08-27] MEDS: ZIPRASIDONE MESYLA 20 MG/VIAL IM PRN (13:19)
[2018-08-27] MEDS: WATER FOR INJ,STERILE 10 ML IM PRN (13:19)
--- NOTE | 2018-08-27 21:48 | P.PN ---
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 SHE DID WELL WITH SURGERY. SP BROKEN HIP SURGERY. SHE WAS ON [facility] BEFORE AND WILL GO BACK ON IT. Review of Systems 10-point ROS is otherwise unremarkable General: Weakness, Malaise Musculoskeletal: As per HPI Physical Examination - Vital Signs Temperature: 98.7 F Blood Pressure: 98/54 Pulse: 88 Respirations: 17 Pulse Ox (%): 95 - Physical Exam General: Alert, Cachectic, Moderate distress HEENT: Atraumatic, PERRLA, EOMI Neck: Supple, JVD not distended Respiratory: Clear to auscultation bilaterally, Normal air movement Cardiovascular: Regular rate/rhythm, Normal S1 S2 Gastrointestinal: Normal bowel sounds, No tenderness Musculoskeletal: No tenderness Integumentary: No rashes Neurological: Dementia Lymphatics: No axilla or inguinal lymphadenopathy - Studies Medications List Reviewed: Yes Assessment And Plan - Current Problems (Diagnosis) (1) Recent fracture of hip Onset Date: 08/27/18 Current Visit: Yes Status: Acute Plan: MEDICALLY CLEARED WITH MILD RISK FOR ANESTHESIA AND SURGERY BUT MODERATE RISK OF NON RECOVERY POST OP FOR BEING ABLE TO WALK AGAIN. SHE HAS MODERATE DEMENTIA AND MAY NOT BE ABLE TO DO PT. SHE WILL GO BACK TO [facility]. LIVING FACILITY. STABLE FOR NOW. NO ACUTE CORONARY SYMPTOMS. DID WELL WITH SURGERY. RECOVERY WILL BE IN QUESTION. MAY NOT WALK AGAIN. FAMILY IS AWARE. DW THEM TODAY ABOUT GOING BACK TO [facility]. SP SURGERY DOING WELL. SEDATED. DEMENTED WILL BE BACK ON HOSPICE.
[2018-08-28] MEDS: MORPHINE 2 MG/ML SYR IV PRN ×5 (01:43→21:56)
[2018-08-28] MEDS: D5 0.45 NS 1,000 ML IV SCH ×2 (04:57→17:00)
--- NOTE | 2018-08-28 19:41 | P.PN ---
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 SHE DID WELL WITH SURGERY. SP BROKEN HIP SURGERY. SHE WAS ON [facility] BEFORE AND WILL GO BACK ON IT. MS SPENCE IS SEDATED, AND GETS VERY AGITATED WITHOUT GEODON. Review of Systems is unable to be obtained Physical Examination - Vital Signs Temperature: 98.9 F Blood Pressure: 100/44 Pulse: 76 Respirations: 20 Pulse Ox (%): 93 - Physical Exam General: Confused, Other (SEDATED) Respiratory: Normal air movement Cardiovascular: No edema Neurological: Dementia - Studies Medications List Reviewed: Yes Assessment And Plan - Current Problems (Diagnosis) (1) Recent fracture of hip Onset Date: 08/27/18 Current Visit: Yes Status: Acute Plan: MEDICALLY CLEARED WITH MILD RISK FOR ANESTHESIA AND SURGERY BUT MODERATE RISK OF NON RECOVERY POST OP FOR BEING ABLE TO WALK AGAIN. SHE HAS MODERATE DEMENTIA AND MAY NOT BE ABLE TO DO PT. SHE WILL GO BACK TO [facility]. LIVING FACILITY. STABLE FOR NOW. NO ACUTE CORONARY SYMPTOMS. DID WELL WITH SURGERY. RECOVERY WILL BE IN QUESTION. MAY NOT WALK AGAIN. FAMILY IS AWARE. DW THEM TODAY ABOUT GOING BACK TO [facility]. SP SURGERY DOING WELL. SEDATED. DEMENTED WILL BE BACK ON HOSPICE. SHE WILL NOT BE ABLE TO COOPERATE WITH PT. I HAVE TOLD FAMILY ABOUT THIS BEFORE. DAUGHTER CAME TO NURSES STATION FOR PUTTING TUBE TO FEED HER ETC. I CALLED ALL FOUR NUMBERS LISTED AND NO ONE WAS AVAILABLE TO TALK. I RECOMMEND [facility] WITH HOSPICE CONTINUATION.
--- NOTE | 2018-08-28 19:42 | P.PN ---
Subjective Date of Service: 08/28/18 Chief Complaint: FELL AND BROKE R HIP Subjective: No new changes Review of Systems is unable to be obtained Physical Examination - Vital Signs Temperature: 98.9 F Blood Pressure: 100/44 Pulse: 76 Respirations: 20 Pulse Ox (%): 93 - Physical Exam General: Demented Musculoskeletal: Other (dressing C/D/I) - Studies Medications List Reviewed: Yes Assessment And Plan - Plan she has substantial dementia and is on hospice, she will need nursing assistance with transfers touch down only. for the next 6 weeks, a halfway unit, she will need anticoagulation 28 days from discharge, and a dressing change prior to discharge Discharge Plan: LTAC Plan to discharge in: 24 Hours
[2018-08-29] MEDS: D5 0.45 NS 1,000 ML IV SCH ×3 (01:21→17:26)
[2018-08-29] MEDS: MORPHINE 2 MG/ML SYR IV PRN ×5 (02:21→20:39)
[2018-08-29 04:53] LABS: Absolute Lymphocytes (CBC) 1.6 K/uL (0.7-4.9); Absolute Monocytes 1.1 K/uL (0.1-1.3); Absolute Neutrophil 6.2 K/uL (1.8-8.0); Basophils % 0.7 % (0-1.3); Eosinophils % 3.3 % (0-4.4); MCH 32.3 pg (27.0-35.0); MCV 93.6 fL (80-100); MPV 9.2 fL (7.6-11.3); RBC Red Blood Cell Count 2.15 M/uL (3.86-4.86)
[2018-08-29 04:57] LABS: Hematocrit 20.1 % (36.0-45.0)
[2018-08-29 05:06] LABS: BUN Blood Urea Nitrogen 9 mg/dL (7-18); Bicarbonate 28 mmol/L (21-32); Glucose Level 121 mg/dL (74-106); Potassium 3.4 mmol/L (3.5-5.1); Sodium Level 140 mmol/L (136-145)
[2018-08-29] MEDS: NA CHLORIDE 0.9% 250 ML IV SCH ×2 (09:43→13:40)
[2018-08-29] MEDS: WATER FOR INJ,STERILE 10 ML IM PRN ×2 (10:45→18:44)
[2018-08-29] MEDS: ZIPRASIDONE MESYLA 20 MG/VIAL IM PRN ×2 (10:45→18:43)
--- NOTE | 2018-08-29 13:55 | P.PN ---
Subjective Date of Service: 08/29/18 Chief Complaint: FELL AND BROKE R HIP Subjective: Worsening SP SURGERY, SHE WILL GO TO ICU FOR A DAY DR. HOOPER DOES ROUTINELY. SHE DID WELL WITH SURGERY. SP BROKEN HIP SURGERY. SHE WAS ON [facility] BEFORE AND WILL GO BACK ON IT. MS SPENCE IS SEDATED, AND GETS VERY AGITATED WITHOUT GEODON. SHE HAS LOW HG. I ORDERED BLOOD TRANSFUSION. SHE HAS PULLED OUT IV A FEW TIMES. SHE IS SEVERELY DEMENTED. DAUGHTER CALLED TODAY AND ASKS FOR PT BUT SHE HAS SEVERE DEMENTIA AND SHE IS NOT ABLE TO RETAIN ANYTHING ABOUT PT. SHE IN MY OPINION WILL BE BED BOUND AND FAMILY IS NOT UNDERSTADNING IT YET. Review of Systems is unable to be obtained Physical Examination - Vital Signs Temperature: 97.7 F Blood Pressure: 119/45 Pulse: 78 Respirations: 20 Pulse Ox (%): 88 - Physical Exam General: Mild distress, Confused HEENT: Atraumatic, PERRLA, EOMI Neck: Supple, JVD not distended Respiratory: Clear to auscultation bilaterally, Normal air movement Cardiovascular: Regular rate/rhythm, Normal S1 S2 Gastrointestinal: Normal bowel sounds, No tenderness Musculoskeletal: No tenderness Integumentary: No rashes Neurological: Normal speech, Normal tone, Normal affect Lymphatics: No axilla or inguinal lymphadenopathy - Studies Medications List Reviewed: Yes Assessment And Plan - Current Problems (Diagnosis) (1) Recent fracture of hip Onset Date: 08/27/18 Current Visit: Yes Status: Acute Plan: MEDICALLY CLEARED WITH MILD RISK FOR ANESTHESIA AND SURGERY BUT MODERATE RISK OF NON RECOVERY POST OP FOR BEING ABLE TO WALK AGAIN. SHE HAS MODERATE DEMENTIA AND MAY NOT BE ABLE TO DO PT. SHE WILL GO BACK TO [facility]. LIVING FACILITY. STABLE FOR NOW. NO ACUTE CORONARY SYMPTOMS. DID WELL WITH SURGERY. RECOVERY WILL BE IN QUESTION. MAY NOT WALK AGAIN. FAMILY IS AWARE. DW THEM TODAY ABOUT GOING BACK TO [place] [place]. SP SURGERY DOING WELL. SEDATED. DEMENTED WILL BE BACK ON HOSPICE. SHE WILL NOT BE ABLE TO COOPERATE WITH PT. I HAVE TOLD FAMILY ABOUT THIS BEFORE. DAUGHTER CAME TO NURSES STATION FOR PUTTING TUBE TO FEED HER ETC. I CALLED ALL FOUR NUMBERS LISTED AND NO ONE WAS AVAILABLE TO TALK. I RECOMMEND REVERED [facility] WITH HOSPICE CONTINUATION. NOT ABLE TO DO PT DR. HOOPER TOLD HER THAT SHE SHOULD BE ABLE TO GET UP BUT CONSIDERING HER SEVERE DEMENTIA THAT IS NOT POSSIBLE SAFELY. THAT STATEMENT IS GOOD FOR SOMEONE WITHOUT DEMENTIA.
[2018-08-29] MEDS ORDERED: ZIPRASIDONE MESYLA 20 MG/VIAL IM PRN (21:40)
[2018-08-29] MEDS ORDERED: NA CHLORIDE 0.9% 1,000 ML ONE (23:36)
[2018-08-30] MEDS: MORPHINE 2 MG/ML SYR IV PRN ×2 (03:00→06:46)
[2018-08-30] MEDS: D5 0.45 NS 1,000 ML IV SCH ×2 (04:06→09:00)
[2018-08-30 05:36] LABS: Absolute Lymphocytes (CBC) 1.8 K/uL (0.7-4.9); Absolute Monocytes 1.3 K/uL (0.1-1.3); Basophils % 0.5 % (0-1.3); Eosinophils % 3.6 % (0-4.4); Hematocrit 35.4 % (36.0-45.0); Lymphocytes % 16.8 % (15.3-44.8); MCH 30.8 pg (27.0-35.0); MCV 88.3 fL (80-100); MPV 8.4 fL (7.6-11.3); Monocytes % 12.7 % (3.3-12.3); RBC Red Blood Cell Count 4.01 M/uL (3.86-4.86)
[2018-08-30] MEDS ORDERED: HALOPERIDOL LACT 5 MG/ML INJ IV PRN (05:41)
[2018-08-30 05:58] LABS: BUN Blood Urea Nitrogen 8 mg/dL (7-18); Bicarbonate 29 mmol/L (21-32); Glucose Level 106 mg/dL (74-106); Sodium Level 142 mmol/L (136-145)
[2018-08-30 06:00] LABS: Potassium 2.9 mmol/L (3.5-5.1)
--- NOTE | 2018-08-30 10:00 | P.DS ---
Admission Date: 08/24/18 Discharge Date: 08/30/18 Disposition: ROUTINE DISCHARGE Discharge Condition: SERIOUS Reason for Admission: FELL AND BROKE R HIP - Problems (1) Recent fracture of hip Onset Date: 08/27/18 Current Visit: Yes Status: Acute Brief History of Present Illness: MS. SPENCE IS 83 YEARS OLD HEALTHY LADY WITH SIGNIFICANT ALZ. DISEASE FELL AT [facility] AND BROKE R HIP. DAUGHTER IS AT BEDSIDE. MS. SPENCE IS STABLE BUT VERY AGITATED. SHE WITH DEMENTIA IS PULLING EVERYTHING OUT. SHE IS NOT CONTROLLED BY GEODON AND HALDOL. FAMILY UNDERSTANDS THAT WITH SEVERE DEMENTIA SHE WILL NOT BE ABLE TO DO ANYTHING WITH THERAPIST. I SUGGEST SHE GOES BACK TO HER FAMILIAR PLACE AND THAT IS BACK TO [facility]. SHE IS STABLE. HER HG IS UP TO NORMAL. HER K IS LOW BUT WILL BE REPLACED. SHE WILL BE BETTER OFF THAN CONSTANTLY DISTURBING HOSPITAL ENVIRONMENT WHERE DEMENTIA PATIENTS DON 'T DO WELL. I TALKED TO [facility] TO ADMIT HER FOR HOSPICE TODAY. Vital Signs/Physical Exam: Temp Pulse Resp BP Pulse Ox 98.1 F 76 20 149/58 H 92 08/30/18 08:00 08/30/18 08:00 08/30/18 08:00 08/30/18 08:00 08/30/18 08:00 Laboratory Data at Discharge: WBC 10.6 K/uL (4.3-10.9) D 08/30/18 05:02 Hgb 12.3 g/dL (12.0-15.0) D 08/30/18 05:02 Hct 35.4 % (36.0-45.0) L D 08/30/18 05:02 Plt Count 272 K/uL (152-406) D 08/30/18 05:02 PT 11.7 SECONDS (9.5-12.5) 08/24/18 22:00 INR 0.99 08/24/18 22:00 Sodium 142 mmol/L (136-145) 08/30/18 05:02 Potassium 2.9 mmol/L (3.5-5.1) L* 08/30/18 05:02 BUN 8 mg/dL (7-18) 08/30/18 05:02 Creatinine 0.60 mg/dL (0.55-1.3) 08/30/18 05:02 Glucose 106 mg/dL (74-106) 08/30/18 05:02 Magnesium 2.0 mg/dL (1.8-2.4) 08/24/18 22:00 Total Bilirubin 0.4 mg/dL (0.2-1.0) 08/24/18 22:00 AST 17 U/L (15-37) 08/24/18 22:00 ALT 13 U/L (12-78) 08/24/18 22:00 Alkaline Phosphatase 65 U/L (45-117) 08/24/18 22:00 Home Medications: Acetaminophen [Tylenol*] 650 mg KS Q6HP PRN 08/25/18 Lactulose 10 gm PO DAILY PRN 08/25/18 Lorazepam [Ativan] 0.5 mg SL Q2HP PRN 08/25/18 Morphine Sulfate [Roxanol] 100 mg PO Q2HP PRN 08/25/18 Ondansetron HCl [Zofran] 4 mg PO Q4H PRN 08/25/18 Scopolamine [Transderm-Scop] 1.5 mg TD Q72H PRN 08/25/18 Potassium Chloride [Klor-Con M20] 20 meq PO DAILY #90 tab.er.prt 08/30/18 Quetiapine [Seroquel*] 25 mg PO DAILY #90 tab 08/30/18 New Medications: Potassium Chloride [Klor-Con M20] 20 meq PO DAILY #90 tab.er.prt Quetiapine [Seroquel*] 25 mg PO DAILY #90 tab
== END 2018-08-30 11:57 | disposition hospice, inpatient (51) | DRG 482 ==
LOC: ER 20:42 → ERHOLD 23:44 → 4TH 08-25 00:29 → 3RD-ICU 08-26 10:58 → 4TH 08-27 16:00
PROVIDERS: ADMIT Internal Medicine; ATTEND Internal Medicine
PROC: 0QS606Z Reposition Right Upper Femur with Intramedullary Internal Fixation Device, Open Approach (ICD-10-PCS; principal; 2018-08-26 08:30)
DX: S72.141A Displaced intertrochanteric fracture of right femur, initial encounter for closed fracture (principal); G30.9 Alzheimer's disease, unspecified; F02.80 Dementia in other diseases classified elsewhere, unspecified severity, without behavioral disturbance, psychotic disturbance, mood disturbance, and anxiety; F41.9 Anxiety disorder, unspecified; K59.00 Constipation, unspecified; Z96.642 Presence of left artificial hip joint; W01.198A Fall on same level from slipping, tripping and stumbling with subsequent striking against other object, initial encounter; Y93.01 Activity, walking, marching and hiking; Y92.098 Other place in other non-institutional residence as the place of occurrence of the external cause; Z86.73 Personal history of transient ischemic attack (TIA), and cerebral infarction without residual deficits
CPT/HCPCS: 36415; 70450; 71045; 71250; 72125; 72170; 73530; 80048; 80076; 83735; 83880; 84484; 85025; 85610; 86850; 86900; 86901; 90714; 93005; 96361; 96374; 96375; 99285; J0330; J0690; J1630; J1650; J2270; J2370; J2405; J2704; J2710; J3010; J3486; J7030; P9016

== ENCOUNTER 2018-10-31 16:46 | Emergency (ER) | payer OTHER ==
--- OUTSIDE RECORDS SUMMARY | 2018-10-31 16:48 | XMS REPORT ---
:1935 Author Organization [facility] Address [address] [place] [address] Dr. Rodriguez [address] [place] [id number] Care Team Providers Name Role Phone Unavailable Unavailable Unavailable Problems This patient has no known problems. Allergies, Adverse Reactions, Alerts This patient has no known allergies or adverse reactions. Medications This patient has no known medications.
--- NOTE | 2018-10-31 17:20 | RAD REPORT ---
EXAM DESCRIPTION: CT - [id number] - 10/31/2018 5:08 pm CLINICAL HISTORY: Fall, patient found on ground, history of CVA and dementia COMPARISON: CT head August 2018 TECHNIQUE: Axial 5 mm thick images of the head were obtained. Axial 2 mm thick images of the cervic al spine were obtained with sagittal and coronal reconstruction images generated and reviewed. All CT scans are performed using dose optimization technique as appropriate and may include automated exposure control or mA/KV adjustment according to patient size. FINDINGS: No intracranial hemorrhage, mass, edema or acute intracranial finding. No suspicion for acute infarct ion. Patient has moderate severity atrophy and chronic ischemic change. Ventricles are in proportion. Large area of encephalomalacia in the left cerebral hemisphere frontal parietal junction matches the prior study. Mastoid air cells and paranasal sinuses are clear. No globe or orbit abnormality seen. Dense arterial tree calcifications are present. Cervical bodies are normal in height. Very minimal subluxation of C3 on C4. Mild disc space narrowing throughout the cervical spine with more prominent disc space narrowing at C6-7. No fracture or acute bony abnormality. Prominent right facet degenerative change at C2-3 and bilateral at C3-4 and C4-5. Significant right bony foraminal encroachment from significant facet degenerative change at C5-6 with moderate left foraminal stenosis. Left foraminal stenosis at C6-7. Central canal detail is inherentl y limited. No paraspinal mass or hematoma. IMPRESSION: Atrophy, chronic ischemic change and old left cerebral CVA changes matching prior imagin g. No hemorrhage or acute intracranial finding. Prominent cervical spine degenerative change matching prior study. No acute finding.
[2018-10-31] MEDS ORDERED: DERMABOND SKIN ADHESIVE TOP ONE (17:38)
--- NOTE | 2018-10-31 18:10 | EDPHYS ---
Physician Documentation [facility] Name: Albertina Damon Age: 83 yrs Sex: Female : 1935 Arrival Date: 10/31/2018 Time: 16:50 Bed 16 Private MD: ED Physician Dwaine Ramirez HPI: 10/31 17:04 This 83 yrs old Female presents to ER via EMS with complaints of Fall Injury. snw 17:04 Details of fall: The patient fell from a height, bed. Onset: The symptoms/episode snw began/occurred at an unknown time. Associated injuries: The patient sustained injury to the head, contusion, hematoma, laceration, 2 cm(s), of the outer aspect of right eyebrow. Severity of symptoms: At their worst the symptoms were mild, moderate. The patient has experienced similar episodes in the past. The patient has not recently seen a physician. Historical: - Allergies: 17:02 No Known Allergies; aj - Home Meds: 17:02 Morphine 100mg/5ml Oral 1.0 mL Q 2 hours pain PRN [Active]; lactulose 10 gram/15 mL aj Oral soln 15 mL as needed for constipation [Active]; Lorazepam 0.25mg Oral Q 2 hours anxiety [Active]; - PMHx: 17:02 CVA; out of hospital DNR, hospice patient; Weight Loss; Dementia; aj - PSHx: 17:02 hip surgery; aj - Immunization history: Last tetanus immunization: unknown. - Social history:: Smoking status: Patient/guardian denies using tobacco. - Ebola Screening: : Patient negative for fever greater than or equal to 101.5 degrees Fahrenheit, and additional compatible Ebola Virus Disease symptoms Patient denies exposure to infectious person Patient denies travel to an Ebola-affected area in the 21 days before illness onset No symptoms or risks identified at this time. ROS: 17:01 Eyes: Negative for injury, pain, redness, and discharge, ENT: Negative for injury, snw pain, and discharge, Neck: Negative for injury, pain, and swelling, Cardiovascular: Negative for chest pain, palpitations, and edema, Respiratory: Negative for shortness of breath, cough, wheezing, and pleuritic chest pain, Abdomen/GI: Negative for abdominal pain, nausea, vomiting, diarrhea, and constipation, Back: Negative for injury and pain, : Negative for injury, bleeding, discharge, and swelling, MS/Extremity: Negative for injury and deformity. 17:01 Constitutional: Positive for Daughter gives history of dementia, Nov. fall resulted in femur fracture with rodding. 17:01 Skin: Positive for laceration(s), of the outer aspect of right eyebrow. 17:01 Neuro: Positive for altered mental status, dementia, swinging at healthcare providers, Daughter arrived to room and is able to calm patient. Daughter states this is patient's normal behavior when hurt or ill. Exam: 16:58 Eyes: Pupils equal round and reactive to light, extra-ocular motions intact. Lids and snw lashes normal. Conjunctiva and sclera are non-icteric and not injected. Cornea within normal limits. Periorbital areas with no swelling, redness, or edema. Neck: Trachea midline, no thyromegaly or masses palpated, and no cervical lymphadenopathy. Supple, full range of motion without nuchal rigidity, or vertebral point tenderness. No Meningismus. Chest/axilla: Normal chest wall appearance and motion. Nontender with no deformity. No lesions are appreciated. Cardiovascular: Regular rate and rhythm with a normal S1 and S2. No gallops, murmurs, or rubs. Normal PMI, no JVD. No pulse deficits. Respiratory: Lungs have equal breath sounds bilaterally, clear to auscultation and percussion. No rales, rhonchi or wheezes noted. No increased work of breathing, no retractions or nasal flaring. Abdomen/GI: Soft, non-tender, with normal bowel sounds. No distension or tympany. No guarding or rebound. No evidence of tenderness throughout. Back: No spinal tenderness. No costovertebral tenderness. Full range of motion. Skin: Warm, dry with normal turgor. Normal color with no rashes, no lesions, and no evidence of cellulitis. MS/ Extremity: Pulses equal, no cyanosis. Neurovascular intact. Full, normal range of motion. 16:58 Constitutional: The patient appears awake, agitated, anxious, frail, restless, uncomfortable. 16:58 Head/face: Noted is a laceration(s), that is linear, 2 cm(s), of the outer aspect of right eyebrow. 16:58 Neuro: Orientation: Not oriented to person, place, time, situation, Mentation: confused, responsive to pain. Vital Signs: 16:50 Weight 40.82 kg; Height 5 ft. 1 in. (154.94 cm); aj 17:14 BP 164 / 62; Pulse 72; Resp 20; Temp 98.4; Pulse Ox 100% on R/A; aj 16:50 Body Mass Index 17.01 (40.82 kg, 154.94 cm) aj Richard Coma Score: 16:50 Eye Response: spontaneous(4). Verbal Response: oriented(5). Motor Response: obeys aj commands(6). Total: 15. Trauma Score (Adult): 16:50 Eye Response: spontaneous(1); Verbal Response: oriented(1); Motor Response: obeys aj commands(2); Systolic BP: > 89 mm Hg(4); Respiratory Rate: 10 to 29 per min(4); Meade Score: 15; Trauma Score: 12 Laceration: 18:05 Wound Repair of 2cm ( 0.8in ) subcutaneous laceration to Proximal to outer aspect of pm1 right eyebrow. Irregularly shaped.. Distal neuro/vascular/tendon intact. Wound prep: Extensive cleansing with hibiclenz by brewery technician, Wound irrigation with saline by brewery technician, Wound explored extensively, Copious irrigation. Skin closed with 1-0 Adhesive skin closure using Dermabond. Patient tolerated well. MDM: 17:01 Patient medically screened. pm1 18:08 Data reviewed: vital signs. Data interpreted: Pulse oximetry: on room air is 100 %. pm1 Interpretation: normal. Counseling: I had a detailed discussion with the patient and/or guardian regarding: the historical points, exam findings, and any diagnostic results supporting the discharge/admit diagnosis, radiology results, the need for outpatient follow up, to return to the emergency department if symptoms worsen or persist or if there are any questions or concerns that arise at home. 10/31 17:01 Order name: CT Head C Spine; Complete Time: 17:33 pm1 10/31 17:01 Order name: Dermabond; Complete Time: 18:11 snw 10/31 17:01 Order name: Wound Care; Complete Time: 18:11 snw 10/31 17:04 Order name: Dermabond; Complete Time: 18:11 snw Administered Medications: No medications were administered Disposition: 18:31 Co-signature as Attending Physician, Dwaine Ramirez MD. rn Disposition: 10/31/18 18:09 Discharged to Home. Impression: Superficial injury of head, Laceration without foreign body of unspecified part of head - forehead. - Condition is Stable. - Discharge Instructions: Head Injury, Adult, Facial Laceration, Stitches, [place], or Adhesive Wound Closure. - Medication Reconciliation Form, Thank You Letter form. - Follow up: Emergency Department; When: As needed; Reason: Worsening of condition. Follow up: Private Physician; When: 2 - 3 days; Reason: Wound Recheck, Recheck today's complaints, Continuance of care, Re-evaluation by your physician. - Problem is new. - Symptoms have improved. Signatures: Dispatcher [employer] EDID Fallon Rollins RN RN aj Therrien, Shelly, PRINTS AND DRAWINGS CURATOR-C PRINTS AND DRAWINGS CURATOR-Csnw Dwaine Ramirez MD MD rn Marinas, Patrick, EDUCATIONAL DIRECTOR EDUCATIONAL DIRECTOR pm1 Corrections: (The following items were deleted from the chart) 17:02 17:01 Dermabond ordered. pm1 pm1 17:06 17:01 Head C Spine MPR Wo Con+CT.RAD.BRZ ordered. EDID EDID 18:25 18:09 10/31/2018 18:09 Discharged to Home. Impression: Superficial injury of head; aj Laceration without foreign body of unspecified part of head - forehead. Condition is Stable. Forms are Medication Reconciliation Form, Thank You Letter, Antibiotic Education, Prescription Opioid Use. Follow up: Emergency Department; When: As needed; Reason: Worsening of condition. Follow up: Private Physician; When: 2 - 3 days; Reason: Wound Recheck, Recheck today's complaints, Continuance of care, Re-evaluation by your physician. Problem is new. Symptoms have improved. pm1
--- NOTE | 2018-10-31 18:10 | ER ---
Nurse's Notes [facility] Name: Albertina Damon Age: 83 yrs Sex: Female : 1935 Arrival Date: 10/31/2018 Time: 16:50 Bed 16 Private MD: Diagnosis: Superficial injury of head;Laceration without foreign body of unspecified part of head-forehead Presentation: 10/31 16:50 Presenting complaint: EMS states: Patient was found on floor by [facility] staff aj today at 1600. Abrasion to right outer eyebrow. Small skin tears noted to right hand and right knee. Bleeding controlled. Unknown LOC. Patient is awake and alert WNL according to [facility]. Care prior to arrival: None. Mechanism of Injury: Fall unknown distance of fall. Trauma event details: Injury occurred in the [facility], Injury occurred: at home. Injury occurred: October 31, 2018 Injury occurred at: 16:00. 16:50 Acuity: VIVIANE 4 aj 16:50 Method Of Arrival: EMS: [facility] 16:56 Transition of care: patient was not received from another setting of care. Onset of aj symptoms was October 31, 2018. Risk Assessment: Do you want to hurt yourself or someone else? Patient reports no desire to harm self or others. Initial Sepsis Screen: Does the patient meet any 2 criteria? No. Patient's initial sepsis screen is negative. Does the patient have a suspected source of infection? No. Patient's initial sepsis screen is negative. Trauma Activation: Alert Physician: ED Physician; Name: ; Notified At: ; Arrived At: Physician: General Surgeon; Name: ; Notified At: ; Arrived At: Physician: Radiology; Name: ; Notified At: ; Arrived At: Physician: Respiratory; Name: ; Notified At: ; Arrived At: Physician: Lab; Name: ; Notified At: ; Arrived At: Historical: - Allergies: 17:02 No Known Allergies; aj - Home Meds: 17:02 Morphine 100mg/5ml Oral 1.0 mL Q 2 hours pain PRN [Active]; lactulose 10 gram/15 mL Oral soln 15 mL as needed for constipation [Active]; Lorazepam 0.25mg Oral Q 2 hours anxiety [Active]; - PMHx: 17:02 CVA; out of hospital DNR, hospice patient; Weight Loss; Dementia; aj - PSHx: 17:02 hip surgery; aj - Immunization history: Last tetanus immunization: unknown. - Social history:: Smoking status: Patient/guardian denies using tobacco. - Ebola Screening: : Patient negative for fever greater than or equal to 101.5 degrees Fahrenheit, and additional compatible Ebola Virus Disease symptoms Patient denies exposure to infectious person Patient denies travel to an Ebola-affected area in the 21 days before illness onset No symptoms or risks identified at this time. Screenin:15 Abuse screen: Denies threats or abuse. Denies injuries from another. Nutritional aj screening: No deficits noted. Tuberculosis screening: No symptoms or risk factors identified. Fall Risk Fall in past 12 months (25 points). Primary Survey: 16:50 NO uncontrolled hemorrhage observed. Breathing/Chest: Respiratory pattern: regular, aj Respiratory effort: spontaneous, unlabored, Breath sounds: clear, bilaterally. Circulation: Skin color: pink, Skin temperature: warm, dry. Disability Alert. Exposure/Environment: All clothing and personal items were removed. Forensic evidence collection is not deemed to be indicated at this time. Items placed in patient belonging bag. Assessment: 16:50 General: Appears in no apparent distress. comfortable, Behavior is agitated. Pain: aj Unable to use pain scale. Patient is disoriented. Neuro: Level of Consciousness is awake, Oriented to person. Respiratory: Airway is patent Respiratory effort is even, unlabored, Respiratory pattern is regular, symmetrical. Derm: Skin is fragile, is thin, Skin is pink, warm \T\ dry. normal. Injury Description: Abrasion sustained to outer aspect of right eyebrow. 18:22 Reassessment: Patient appears in no apparent distress at this time. No changes from aj previously documented assessment. Patient and/or family updated on plan of care and expected duration. Pain level reassessed. Vital Signs: 16:50 Weight 40.82 kg; Height 5 ft. 1 in. (154.94 cm); aj 17:14 BP 164 / 62; Pulse 72; Resp 20; Temp 98.4; Pulse Ox 100% on R/A; aj 16:50 Body Mass Index 17.01 (40.82 kg, 154.94 cm) aj Richard Coma Score: 16:50 Eye Response: spontaneous(4). Verbal Response: oriented(5). Motor Response: obeys aj commands(6). Total: 15. Trauma Score (Adult): 16:50 Eye Response: spontaneous(1); Verbal Response: oriented(1); Motor Response: obeys aj commands(2); Systolic BP: > 89 mm Hg(4); Respiratory Rate: 10 to 29 per min(4); Rihcard Score: 15; Trauma Score: 12 ED Course: 16:50 Patient arrived in ED. aj 16:54 Triage completed. aj 16:56 Christopher Gar NP is PHCP. pm1 16:56 Dwaine Ramirez MD is Attending Physician. pm1 17:02 Arm band placed on left wrist. Patient placed in an exam room, on a stretcher. aj 17:08 CT Head C Spine In Process Unspecified. EDIN 17:08 CT completed. Patient tolerated procedure well. Patient moved back from CT. 2 17:11 Fallon Rollins, RN is Primary Nurse. aj 17:15 Bed in low position. Side rails up X2. Adult w/ patient. Pulse ox on. NIBP on. aj 18:06 Assist provider with laceration repair on outer aspect of right eyebrow that was mh5 between 2.6 to 7.5 cm using Dermabond. Performed by Christopher Gar NP Patient tolerated well. Wound care: to laceration Patient tolerated well. 18:22 Patient did not have IV access during this emergency room visit. aj Administered Medications: No medications were administered Outcome: 18:09 Discharge ordered by . pm1 18:22 Discharged to home with family. aj 18:22 Condition: good 18:22 Discharge instructions given to family, Instructed on discharge instructions, follow up and referral plans. wound care, Demonstrated understanding of instructions, follow-up care, wound care. 18:25 Patient left the ED. Signatures: Dispatcher [employer] Fallon Easley RN RN aj Marinas, Patrick, NP POWDERED SUGAR PULVERIZER OPERATOR pm1 Guadalupe Mistry [facility] Cristy Reynolds [facility]
== END 2018-10-31 18:25 | disposition home or self-care (01) ==
LOC: ER 16:46
PROC: 0JQ10ZZ Repair Face Subcutaneous Tissue and Fascia, Open Approach (ICD-10-PCS; principal; 2018-10-31)
DX: S01.81XA Laceration without foreign body of other part of head, initial encounter (principal); F03.90 Unspecified dementia, unspecified severity, without behavioral disturbance, psychotic disturbance, mood disturbance, and anxiety; W19.XXXA Unspecified fall, initial encounter; Y93.9 Activity, unspecified; Y92.129 Unspecified place in nursing home as the place of occurrence of the external cause
CPT/HCPCS: 12011; 70450; 72125; 99284; G0168